=== PATIENT | male | born 1955 | race Caucasian/White ===

== ENCOUNTER 2021-06-26 16:01 | Emergency (ER) | payer BC, SELFPAY ==
[2021-06-26 17:45] VITALS: BP 175/72; PULSE 89; RESP 18; TEMP 36.3; O2SAT 96; BMI 27.1
[2021-06-26 17:59] LABS: MANUAL DIFF FLAG NO
[2021-06-26 18:00] LABS: Basophils Absolute Auto 0.1 X10*3/uL (0.0-0.2); Basophils Percent Auto 0.6 % (0-2); Eosinophils Absolute Auto 0.2 X10*3/uL (0.0-0.4); Eosinophils Percent Auto 2.2 % (0-4); Hematocrit 41.9 % (42.0-52.0); Hemoglobin 14.3 g/dl (14.0-18.0); Imm Gran Abs Auto 0.02 X10*3/uL (0.00-0.03); Imm Gran Pct Auto 0.2 % (0.0-0.4); Lymphocytes Percent Auto 24.2 % (20-40); Mean Corpuscular HGB Conc 34.1 g/dl (31.0-36.0); Mean Corpuscular Hemoglobin 32.1 pg (27.0-33.0); Mean Corpuscular Volume 94.2 fL (80.0-98.0); Mean Platelet Volume 8.8 fL (9.4-12.4); Monocytes Absolute Auto 0.9 X10*3/uL (0.1-1.2); Monocytes Percent Auto 10.3 % (2-11); Neutrophils Absolute Auto 5.2 x10*3/uL (2.0-8.3); Neutrophils Percent Auto 62.5 % (45-73); Platelet Count 234 X10*3/uL (160-400); Red Blood Count 4.45 X10*6/uL (4.60-5.80); Red Cell Distribution Width 12.9 % (11.0-16.0); White Blood Count 8.3 X10*3/uL (4.8-10.8)
[2021-06-26 18:28] LABS: Alanine Aminotransferase 25 U/L (0-40); Albumin Level 4.1 g/dL (3.5-5.0); Alkaline Phosphatase 60 U/L (39-117); Anion Gap 15 (12-20); Aspartate Amino Transferase 26 U/L (5-37); Bilirubin Total 0.5 mg/dL (0.0-1.0); Blood Urea Nitrogen 15 mg/dL (9-16); Calcium 9.3 mg/dL (8.4-10.2); Carbon Dioxide 27 mmol/L (22-29); Chloride 101 mmol/L (96-108); Creatinine Clr Calc Pharmacy 94.8; Estimated Glomerular Filt Rate > 60; Glucose Random 92 mg/dL (60-115); Potassium 4.5 mmol/L (3.3-5.1); Sodium 138 mmol/L (135-145); Total Protein 6.7 g/dL (6.5-8.0)
[2021-06-26 18:43] LABS: Appearance Urine CLOUDY; Color Urine YELLOW; Glucose Urine UA NEG (NEG); Leukocyte Esterase Urine 1+ (NEG); Nitrite Urine NEG (NEG); Specific Gravity - Urine 1.025 (1.005-1.025); UACC Culture Trigger YES; Urine Blood 3+ (NEG); Urine Ketones NEG (NEG); Urine Protein 3+ MG/DL (NEG-TRACE)
[2021-06-26 18:45] LABS: Bacteria Urine TRACE /LPF; Mucus Urine TRACE /LPF; Squamous Epithelial Cell Urine TRACE /LPF; WBC Clumps Urine NOTED
[2021-06-26 21:59] VITALS: BP 169/72; PULSE 88; RESP 16; TEMP 36.8; O2SAT 98
--- NOTE | 2021-06-26 23:53 | ED_ITS ---
HPI - Male Genitourinary General Chief complaint: Urogenital-Male Stated complaint: blood in urine/black stool Time Seen by Provider: 06/26/21 23:38 Source: patient Mode of arrival: ambulatory Limitations: no limitations History of Present Illness HPI Narrative: Patient comes to emergency room complaining diarrhea and hematuria. Patient states that the diarrhea started 1st, he took multiple doses of Pepto-Bismol, now he has dark stool. This morning, patient noted hematuria. Patient denies dysuria, no fever, no flank pain. Patient states he that he does not have any abdominal pain either, no nausea or vomiting. Related Data Previous Rx's Medication Instructions Recorded levofloxacin 500 mg tablet 500 mg PO DAILY #9 tab 06/26/21 Allergies Allergy/AdvReac Type Severity Reaction Status Date / Time Penicillins [PCN] Allergy Hives Verified 06/26/21 17:49 Review of Systems Review of Systems: Constitutional : No Weight loss, No Fever, No Chills, No Night Sweats, No Fatigue, No Malaise ENT/Mouth : No Hearing loss, No Ear Pain, No Nasal Congestion, No Sinus Pain, No Hoarseness, No sore throat, No Rhinorrhea, No Swallowing Difficulty Eyes: No Eye Pain, No Swelling, No Redness, No Foreign Body, No Discharge, No Vision Changes Cardiovascular : No Chest Pain, No SOB, No Dyspnea on Exertion, No Orthopnea, No Edema, No Palpitations Respiratory : No Cough, No Sputum, No Wheezing, No Smoke Exposure, No Dyspnea Gastrointestinal : No Nausea, No Vomiting, complaining of Diarrhea, No Constipation, No abdominal Pain, No Hematochezia, No Melena Genitourinary : no irregular bleeding, No Dysuria, No Urinary Frequency, com plaining of Hematuria, No Urinary Incontinence, No Urgency, No Flank Pain, No Urinary Flow Changes, No Hesitancy Musculoskeletal : No joint pain, No Myalgias, No Joint Swelling Skin : No Skin Lesions, No rash Neuro : No Weakness, No Numbness, No Paresthesias, No Loss of Consciousness, No Dizziness, No Headache Psych : No Anxiety/Panic, No Depression, No SI/HI/AH/VH, No Social Issues, Heme/Lymph: No Bruising, No Bleeding,No Lymphadenopathy Endocrine : No Polyuria, No Polydipsia, No Temperature Intolerance PMFSH Social History Social History Advance Directives: No Advance Directives Information Provided: No Physical Exam Vital Signs: Vital Signs: Last Vital Signs Temp 98.3 F 06/26/21 21:59 Pulse 88 06/26/21 21:59 Resp 16 06/26/21 21:59 BP 169/72 H 06/26/21 21:59 Pulse Ox 98 06/26/21 21:59 BMI result Body Mass Index 27.1 Const: Other: Appearance: Alert. Oriented X3. No acute distress. Well-appearing Eyes: Pupils equal, round and reactive to light. ENT: Pharynx normal. Neck: Normal inspection. Neck supple. No lymph nodes noted. No crepitus CVS: Normal heart rate and rhythm. Pulses normal. Normal S1 and S2 Respiratory: No respiratory distress. Breath sounds normal. No Wheezing. No rales Abdomen: Soft and nontender. No rigidity. No distention. Back: No CVA tenderness. Skin: Skin warm and dry. Normal skin color. Normal skin turgor. Extremities: No lower extremity edema. No Lacerations. No Rash Neuro: Oriented X 3. No motor deficit. No sensory deficit. Moving all extremities. No slurred speech. CN 2 through 12 grossly intact Psych: calm, cooperative, normal affect Course Course Course Narrative: Patient's white blood cell count within normal limits, patient has no fever, normal blood pressure, not tachycardic. Patient does have a UTI. Patient refused a rectal exam, it is likely that patient had black stool from Pepto- Bismol. He states he has had colonoscopies in the past and all have been normal . Patient was given the 1st dose of Levaquin in the emergency room p.o.. At this time, pyelonephritis and sepsis are not suspect MDM - Male Genitourinary Lab Data Result diagrams: 06/26/21 17:54 06/26/21 17:54 Labs: Lab Results 06/26/21 06/26/21 06/26/21 Range/Units 17:54 17:54 18:22 WBC 8.3 (4.8-10.8) X10*3/uL RBC 4.45 L (4.60-5.80) X10*6/uL Hgb 14.3 (14.0-18.0) g/dl Hct 41.9 L (42.0-52.0) % MCV 94.2 (80.0-98.0) fL MCH 32.1 (27.0-33.0) pg MCHC 34.1 (31.0-36.0) g/dl RDW 12.9 (11.0-16.0) % Plt Count 234 (160-400) X10*3/uL MPV 8.8 L (9.4-12.4) fL Immature Gran % (Auto) 0.2 (0.0-0.4) % Neut % (Auto) 62.5 (45-73) % Lymph % (Auto) 24.2 (20-40) % [place] % (Auto) 10.3 (2-11) % Eos % (Auto) 2.2 (0-4) % Baso % (Auto) 0.6 (0-2) % Lymph # (Auto) 2.0 (1.2-4.9) X10*3/uL [place] # (Auto) 0.9 (0.1-1.2) X10*3/uL Eos # (Auto) 0.2 (0.0-0.4) X10*3/uL Baso # (Auto) 0.1 (0.0-0.2) X10*3/uL Abs Immat Gran (auto) 0.02 (0.00-0.03) X10*3/uL Absolute Neuts (auto) 5.2 (2.0-8.3) x10*3/uL Absolute Nucleated RBC 0.000 (0.0-0.012) X10*3/uL Nucleated RBC % (auto) 0.0 (0.0-0.2) /100WBC Sodium 138 (135-145) mmol/L Potassium 4.5 (3.3-5.1) mmol/L Chloride 101 (96-108) mmol/L Carbon Dioxide 27 (22-29) mmol/L Anion Gap 15 (12-20) BUN 15 (9-16) mg/dL Creatinine 0.71 (0.5-1.4) mg/dL Estim Creat Clear Calc 94.8 Estimated GFR > 60 Random Glucose 92 (60-115) mg/dL Calcium 9.3 (8.4-10.2) mg/dL Total Bilirubin 0.5 (0.0-1.0) mg/dL AST 26 (5-37) U/L ALT 25 (0-40) U/L Alkaline Phosphatase 60 (39-117) U/L Total Protein 6.7 (6.5-8.0) g/dL Albumin 4.1 (3.5-5.0) g/dL Urine Color YELLOW Urine Appearance CLOUDY Urine pH 6.0 (5.0-8.0) Ur Specific [place] 1.025 (1.005-1.025) Urine Protein 3+ H (NEG-TRACE) MG/DL Urine Glucose (UA) NEG (NEG) MG/DL Urine Ketones NEG (NEG) MG/DL Urine Blood 3+ H (NEG) Urine Nitrite NEG (NEG) Ur Leukocyte Esterase 1+ H (NEG) Urine RBC 76-150 H (0) /HPF Urine WBC 15-29 H (0-4) /HPF Urine WBC Clumps NOTED Ur Squamous Epith Cells TRACE /LPF Urine Bacteria TRACE /LPF Urine Mucus TRACE /LPF Discharge Plan Discharge Clinical Impression: Urinary tract infection Patient Disposition: Home, Self-Care Instructions: Urinary Tract Infection in Men (ED) Additional Instructions: If you have any flank pain, fever, confusion, any new symptoms, please return to the emergency room. Please follow-up with your primary care physician tomorrow. If you have any worsening or new symptoms, please return to the emergency room or call 911 Prescriptions: New levofloxacin 500 mg tablet 500 mg PO DAILY Qty: 9 0RF Rx Instructions: Start 06/27/2021 Stand Alone Forms: Work/School Release
[2021-06-27] MEDS: levoFLOXacin 500 MG TABLET PO (00:03)
== END 2021-06-27 00:11 | disposition home or self-care (01) ==
PROVIDERS: Emergency Provider Emergency Medicine; PCP Internal Medicine
DX: N39.0 Urinary tract infection, site not specified (principal); R31.9 Hematuria, unspecified; Z79.899 Other long term (current) drug therapy
CPT/HCPCS: 36415; 80053; 81001; 85025; 87086; 87088; 87186; 99283

== ENCOUNTER 2023-01-16 21:35 | Emergency (ER) | payer BC, SELFPAY ==
--- NOTE | ~2023-01-16 | CT_ITS ---
EXAMINATION: CT ABDOMEN AND PELVIS WITHOUT CONTRAST CLINICAL INFORMATION: Hematuria COMPARISON: None available. TECHNIQUE: Multidetector volumetric imaging was performed from the superior aspect of the liver through the pubic symphysis. Sagittal and coronal reformatted images were obtained on the technologist's workstation. This CT examination was performed using dose optimization techniques as appropriate, variously including the following: *Automated exposure control *Adjustment of mA and/or kV according to patient size (this includes techniques or standardized protocols for targeted exams where dose is matched to indication/reason for exam; i.e. extremities or head) *Use of iterative reconstruction technique DLP: 543 mGy-cm FINDINGS: LUNG BASES: The visualized lung bases are unremarkable. LIVER, GALLBLADDER, AND BILIARY TREE: Scattered numerous hypodensities of the liver which are sharply marginated , Likely multiple hepatic cysts. Largest in the central liver measures 2 cm. No intrahepatic bile duct dilatation. The gallbladder is unremarkable with no evidence of radiopaque gallstones, gallbladder wall thickening, or obvious pericholecystic inflammatory changes. PANCREAS: Unremarkable. SPLEEN: Unremarkable. ADRENAL GLANDS: Unremarkable. KIDNEYS AND URETERS: The kidneys are normal in size, shape, and attenuation. No hydronephrosis, hydroureter, or calculi seen. No perinephric stranding. BLADDER: Unremarkable. GASTROINTESTINAL TRACT: There are scattered diverticula of the sigmoid colon. There is no diverticulitis. There is no bowel wall thickening /edema. There is no bowel obstruction. There is a moderate volume of stool in the colon. The appendix is normal . The small bowel loops are unremarkable. The stomach is normal. There is no hiatal hernia. ABDOMINAL WALL: No significant hernia is appreciated. LYMPH NODES: Normal. VASCULAR: Vascular calcifications in the abdomen and pelvis. No aneurysm. PELVIC VISCERA: Unremarkable. OSSEOUS STRUCTURES: Status post left hip replacement. Degenerative spondylosis spine. CT/CT abdomen pelvis wo IV con IMPRESSION: 1. No acute abnormality CT scan abdomen pelvis. Normal kidneys, ureter and bladder. Fleischner guidelines were followed.
[2023-01-16 21:47] VITALS: BP 143/59; PULSE 93; RESP 18; TEMP 36.7; O2SAT 96; BMI 28.5
[2023-01-16 22:23] VITALS: BP 152/60; PULSE 90; TEMP 36.8; O2SAT 96
[2023-01-16 22:40] LABS: MANUAL DIFF FLAG NO
[2023-01-16 22:46] LABS: Basophils Absolute Auto 0.1 X10*3/uL (0.0-0.2); Basophils Percent Auto 0.4 % (0-2); Eosinophils Absolute Auto 0.1 X10*3/uL (0.0-0.4); Eosinophils Percent Auto 0.9 % (0-4); Hematocrit 41.5 % (42.0-52.0); Hemoglobin 14.2 g/dl (14.0-18.0); Imm Gran Abs Auto 0.06 X10*3/uL (0.00-0.03); Imm Gran Pct Auto 0.4 % (0.0-0.4); Lymphocytes Absolute Auto 1.9 X10*3/uL (1.2-4.9); Mean Corpuscular HGB Conc 34.2 g/dl (31.0-36.0); Mean Corpuscular Hemoglobin 32.4 pg (27.0-33.0); Mean Corpuscular Volume 94.7 fL (80.0-98.0); Mean Platelet Volume 8.9 fL (9.4-12.4); Monocytes Absolute Auto 1.1 X10*3/uL (0.1-1.2); Monocytes Percent Auto 7.4 % (2-11); Neutrophils Absolute Auto 11.6 x10*3/uL (2.0-8.3); Neutrophils Percent Auto 77.9 % (45-73); Platelet Count 247 X10*3/uL (160-400); Red Blood Count 4.38 X10*6/uL (4.60-5.80); White Blood Count 14.9 X10*3/uL (4.8-10.8)
[2023-01-16 22:55] LABS: Alanine Aminotransferase 14 U/L (0-40); Albumin Level 3.9 g/dL (3.5-5.0); Alkaline Phosphatase 63 U/L (39-117); Anion Gap 13 (12-20); Aspartate Amino Transferase 18 U/L (5-37); Bilirubin Total 0.5 mg/dL (0.0-1.0); Blood Urea Nitrogen 16 mg/dL (9-16); Calcium 9.1 mg/dL (8.4-10.2); Carbon Dioxide 25 mmol/L (22-29); Chloride 102 mmol/L (96-108); Creatinine Clr Calc Pharmacy 95.6; Estimated Glomerular Filt Rate > 60; Glucose Random 98 mg/dL (60-115); Sodium 136 mmol/L (135-145); Total Protein 6.8 g/dL (6.5-8.0)
[2023-01-16 23:02] LABS: Appearance Urine Turbid; Color Urine RED; Glucose Urine UA 100 mg/dL (Negative); Leukocyte Esterase Urine Moderate (2+) (Negative); Nitrite Urine Positive (Negative); PH 6.5 (5.0-9.0); UMIC TRIGGER UACC YES; Urine Blood Large (3+) (Negative); Urine Ketones 15 mg/dL (Negative); Urine Protein 300 (3+) mg/dL (Neg-Trace)
[2023-01-16 23:03] LABS: Bacteria Urine Trace (None Seen); Hyaline Casts Urine 0-2 /LPF (0-2); RBC Urine >20 /HPF (0-2); Squamous Epithelial Cell Urine 0-2 /HPF (0-2); UACC Culture Trigger YES; WBC Urine >50 /HPF (0-5)
--- NOTE | 2023-01-16 23:14 | ED_ITS ---
HPI - Male Genitourinary General Chief complaint: Urogenital-Male Stated complaint: blood in urine Time Seen by Provider: 01/16/23 22:50 Source: patient and family ( son) Mode of arrival: ambulatory Limitations: no limitations History of Present Illness HPI Narrative: 67-year-old male came in for evaluation of dysuria, frequency urination, and gross hematuria started for 1 day, patient is not on AC. Declined any abdominal pain or back pain. Patient had similar presentation in the past and patient's symptoms was due to UTI improved with antibiotic. Patient with cross hematuria bladder irrigation with Tucker catheter insertion was discussed with the patient who adamantly declined the Tucker catheter patient understand the benefit of inserting catheterization and do continuous irrigation to stop the bleeding and still decline the catheter and just wanted to be treated with antibiotic life last time. Related Data Home Medications Medication Instructions Recorded Confirmed aspirin 81 mg tablet,delayed 81 mg PO DAILY 02/26/22 release (Adult Aspirin Regimen) atorvastatin 40 mg tablet 40 mg PO DAILY 02/26/22 vyvsvzmaltzd-owk-lypwr acid-vit 1 tab PO DAILY 02/26/22 K-lycop 400 mcg-20 mcg-370 mcg tablet (Men's 50 Plus Multivitamin) Previous Rx's Medication Instructions Recorded levofloxacin 500 mg tablet 500 mg PO DAILY 10 days #10 tabs 02/26/22 lidocaine 4 % topical patch 1 patch topical DAILY PRN pain #15 02/26/22 (AsperFlex (lidocaine)) ea levofloxacin 750 mg tablet 750 mg PO DAILY #7 tabs 01/16/23 Allergies Allergy/AdvReac Type Severity Reaction Status Date / Time Penicillins [PCN] Allergy Hives Verified 01/16/23 21:50 Review of Systems 2 Review of Systems: all other systems are reviewed and are negative Constitutional: Reports as per HPI and Reports no additional constitutional complaints Eyes: Reports as per HPI and Reports no additional eye complaints Reports system reviewed and no additional complaints, except as documented Cardiovascular: Reports as per HPI and Reports no additional cardiovascular complaints Respiratory: Reports as per HPI and Reports no additional respiratory complaints Gastrointestinal: Reports as per HPI and Reports no additional gastrointestinal complaints Genitourinary: Reports no additional female genitourinary complaints Musculoskeletal: Reports no additional musculoskeletal complaints Skin/Breast: Reports system reviewed and no additional complaints, except as docu Psychiatric: Reports no additional psychiatric complaints Endocrine: Reports no additional endocrine complaints Hematologic/Lymphatic: Reports no additional hematologic/lymphatic complaints Allergic/Immunologic: Reports no additional allergic/immunologic complaints Reports system reviewed and no additional complaints, except as documented and Reports Abnormal speech present [facility] Social History Social History Patient Tobacco Use Status: Never used Tobacco Advance Directives: No Advance Directives Information Provided: No Physical Exam 2 Vital Signs: Vital Signs: Last Vital Signs Temp 98.4 F 01/17/23 00:29 Pulse 78 01/17/23 00:29 Resp 16 01/17/23 00:29 BP 143/65 H 01/17/23 00:29 Pulse Ox 96 01/17/23 00:29 O2 Del Method Room Air 01/17/23 00:29 BMI result Body Mass Index 28.5 Vital signs have been reviewed and appear to be correct. Blood pressure elevated. Heart rate normal. Respiratory rate normal. Temperature normal. Oxygen saturation normal. Appearance: Alert. Oriented X3. No acute distress. Head: Normal external exam. Normocephalic. Atraumatic. No Mcconnell signs noted. No raccoon eyes noted Eyes: PERRLA. EOMI. Conjunctiva and sclera normal. Eyelids normal. ENT: TM's Normal. Pharynx normal. Uvula midline. Moist mucous membranes. No trismus noted. No drooling noted. No muffled voice noted. Neck: Normal inspection. Neck supple. FROM. No adenopathy. Thyroid Normal. No meningeal signs. No neck mass noted. CVS: Normal heart rate and rhythm. Heart sound normal. No murmurs noted. Pulses normal throughout. Respiratory: No respiratory distress. Painless inspiration. Breath sounds normal. No wheezes/rales/rhonchi noted. Chest nontender. No accessory muscle usage noted or decreased air movement noted. Abdomen: Soft and nontender. Bowel sounds normal in all 4 quadrants. No distention noted. No organomegaly noted. No visible injury noted. Back: No CVA tenderness. Full range of motion noted. Skin: Skin warm and dry. Normal skin color. Normal skin turgor. No rashes/lesions/lacerations noted. Extremities: No lower extremity edema. Extremities exhibit normal range of motion. Extremities nontender. Neuro: Oriented X 3. Cranial nerve exam: II-XII are grossly intact No motor deficit. No sensory deficit. Reflexes normal. Course Reevaluation(s) Reevaluation #1: UTI/gross hematuria had previous episode in the past that was resolved with antibiotic for UTI. CT abdomen pelvis showing no intra-abdominal abnormalities. Will start the patient on Levaquin and follow up with urologist. Time: 01:19 Medications Administered Discontinued Medications Generic Name Dose Route Start Last Admin Trade Name Freq PRN Reason Stop Dose Admin Sodium Chloride 1,000 mls @ 999 mls/hr 01/16/23 23:08 01/16/23 23:52 Ns IV 01/17/23 00:08 999 mls/hr .[id number] ONE Administration Levofloxacin 750 mg in 150 mls @ 100 mls/hr 01/16/23 23:13 01/16/23 23:53 Levaquin IV 01/17/23 00:42 100 mls/hr ONCE ONE Administration Medical Decision Making Differential Diagnosis Differential Diagnoses: The differential diagnosis associated with the presentation includes ( Severe anemia, electrolyte abnormality, kidney stone, intra-abdominal mass.) Admission/Observation Consideration of admission/observation: Escalation of care including admission/observation considered Lab Data MDM Lab Attestation statement: I reviewed the patient's lab results. 01/16/23 22:30 01/16/23 22:30 Labs: Lab Results 01/16/23 01/16/23 01/16/23 Range/Units 22:30 22:31 23:52 WBC 14.9 H (4.8-10.8) X10*3/uL RBC 4.38 L (4.60-5.80) X10*6/uL Hgb 14.2 (14.0-18.0) g/dl Hct 41.5 L (42.0-52.0) % MCV 94.7 (80.0-98.0) fL MCH 32.4 (27.0-33.0) pg MCHC 34.2 (31.0-36.0) g/dl RDW 13.0 (11.0-16.0) % Plt Count 247 (160-400) X10*3/uL MPV 8.9 L (9.4-12.4) fL Immature Gran % (Auto) 0.4 (0.0-0.4) % Neut % (Auto) 77.9 H (45-73) % Lymph % (Auto) 13.0 L (20-40) % [place] % (Auto) 7.4 (2-11) % Eos % (Auto) 0.9 (0-4) % Baso % (Auto) 0.4 (0-2) % Lymph # (Auto) 1.9 (1.2-4.9) X10*3/uL [place] # (Auto) 1.1 (0.1-1.2) X10*3/uL Eos # (Auto) 0.1 (0.0-0.4) X10*3/uL Baso # (Auto) 0.1 (0.0-0.2) X10*3/uL Abs Immat Gran (auto) 0.06 H (0.00-0.03) X10*3/uL Absolute Neuts (auto) 11.6 H (2.0-8.3) x10*3/uL Absolute Nucleated RBC 0.000 (0.0-0.012) X10*3/uL Nucleated RBC % (auto) 0.0 (0.0-0.2) /100WBC Sodium 136 (135-145) mmol/L Potassium 4.0 (3.3-5.1) mmol/L Chloride 102 (96-108) mmol/L Carbon Dioxide 25 (22-29) mmol/L Anion Gap 13 (12-20) BUN 16 (9-16) mg/dL Creatinine 0.74 (0.5-1.4) mg/dL Estim Creat Clear Calc 95.6 Estimated GFR > 60 Random Glucose 98 (60-115) mg/dL Lactic Acid 0.6 (0.5-2.0) mmol/L Calcium 9.1 (8.4-10.2) mg/dL Total Bilirubin 0.5 (0.0-1.0) mg/dL AST 18 (5-37) U/L ALT 14 (0-40) U/L Alkaline Phosphatase 63 (39-117) U/L Total Protein 6.8 (6.5-8.0) g/dL Albumin 3.9 (3.5-5.0) g/dL Urine Color RED Urine Appearance Turbid Urine pH 6.5 (5.0-9.0) Ur Specific [place] 1.020 (1.005-1.025) Urine Protein 300 (3+) H (Neg-Trace) mg/dL Urine Glucose (UA) 100 H (Negative) mg/dL Urine Ketones 15 (Negative) mg/dL Urine Blood Large (3+) H (Negative) Urine Nitrite Positive H (Negative) Ur Leukocyte Esterase Moderate (2+) H (Negative) Urine RBC >20 H (0-2) /HPF Urine WBC >50 H (0-5) /HPF Ur Squamous Epith Cells 0-2 (0-2) /HPF Urine Bacteria Trace (None Seen) Hyaline Casts 0-2 (0-2) /LPF Independent Interpretation I performed an independent interpretation of an: CT Scan (1. No acute abnormality CT scan abdomen pelvis. Normal kidneys, ureter and bladder. ) Radiology Impression Discussion of test interpretation with radiology: I have reviewed the radiologist's reading. Discharge Plan Discharge Clinical Impression: Hematuria Urinary tract infection Qualifiers: Urinary tract infection type: acute cystitis Hematuria presence: with hematuria Qualified Code(s): N30.01 - Acute cystitis with hematuria Patient Disposition: Home, Self-Care Instructions: Urinary Tract Infection in Men (ED) Prescriptions: New levofloxacin 750 mg tablet 750 mg PO DAILY Qty: 7 0RF No Action atorvastatin 40 mg tablet 40 mg PO DAILY aspirin [Adult Aspirin Regimen] 81 mg tablet,delayed release (DR/EC) 81 mg PO DAILY Men's 50 Plus Multivitamin 400-20-370 mcg tablet 1 tab PO DAILY levofloxacin 500 mg tablet 500 mg PO DAILY 10 Days Qty: 10 0RF lidocaine [AsperFlex (lidocaine)] 4 % adhesive patch,medicated 1 patch topical DAILY PRN (Reason: pain) Qty: 15 0RF Referrals: Duarte Singleton MD [Physician] -
[2023-01-16] MEDS: 0.9 % Sodium Chloride 1,000 ML 999 ML IV (23:52)
[2023-01-16] MEDS: levoFLOXacin/D5W 750 MG/150 ML PIGGYBACK 100 MG IV (23:53)
--- NOTE | 2023-01-17 00:01 | PC.NURSE ---
verbal order from Dr. Childress to obtain blood cultures/lactic prior to ivf/abx. ivf and abx infusing at this time. education provided to pt and son at bedside of plan of care; both denied questions/concerns at this time. pt to ct scan.
[2023-01-17 00:14] LABS: Lactic Acid 0.6 mmol/L (0.5-2.0)
[2023-01-17 00:29] VITALS: BP 143/65; PULSE 78; RESP 16; TEMP 36.9; O2SAT 96
[2023-01-17 01:36] VITALS: BP 136/81; PULSE 84; RESP 16; O2SAT 95
== END 2023-01-17 01:37 | disposition home or self-care (01) ==
PROVIDERS: Emergency Provider Emergency Medicine; PCP Internal Medicine
DX: N30.01 Acute cystitis with hematuria (principal); R30.0 Dysuria; R35.0 Frequency of micturition
CPT/HCPCS: 36415; 74176; 80053; 81001; 83605; 85025; 87040; 87086; 96365; 96366; 99285; J1956

== ENCOUNTER 2023-02-22 06:55 | Emergency (ER) | payer BC, SELFPAY ==
[2023-02-22 07:14] VITALS: BP 155/70; PULSE 84; RESP 17; TEMP 36.8; O2SAT 97; BMI 25.9
[2023-02-22 08:17] LABS: MANUAL DIFF FLAG NO
[2023-02-22 08:20] LABS: Basophils Absolute Auto 0.1 X10*3/uL (0.0-0.2); Basophils Percent Auto 0.6 % (0-2); Eosinophils Absolute Auto 0.2 X10*3/uL (0.0-0.4); Eosinophils Percent Auto 1.8 % (0-4); Hematocrit 46.2 % (42.0-52.0); Hemoglobin 15.5 g/dl (14.0-18.0); Imm Gran Abs Auto 0.06 X10*3/uL (0.00-0.03); Imm Gran Pct Auto 0.5 % (0.0-0.4); Lymphocytes Absolute Auto 1.6 X10*3/uL (1.2-4.9); Lymphocytes Percent Auto 14.2 % (20-40); Mean Corpuscular HGB Conc 33.5 g/dl (31.0-36.0); Mean Corpuscular Hemoglobin 32.4 pg (27.0-33.0); Mean Corpuscular Volume 96.7 fL (80.0-98.0); Monocytes Absolute Auto 0.8 X10*3/uL (0.1-1.2); Monocytes Percent Auto 6.9 % (2-11); Neutrophils Absolute Auto 8.4 x10*3/uL (2.0-8.3); Platelet Count 218 X10*3/uL (160-400); Red Blood Count 4.78 X10*6/uL (4.60-5.80); Red Cell Distribution Width 13.7 % (11.0-16.0); White Blood Count 11.1 X10*3/uL (4.8-10.8)
[2023-02-22 08:21] LABS: Appearance Urine Turbid; Color Urine Red; Glucose Urine UA Negative (Negative); Leukocyte Esterase Urine Large (3+) (Negative); Nitrite Urine Positive (Negative); UMIC TRIGGER UACC YES; Urine Blood Moderate (2+) (Negative); Urine Ketones Negative (Negative); Urine Protein 100 (2+) mg/dL (Neg-Trace)
--- NOTE | 2023-02-22 08:21 | ED_ITS ---
HPI - Male Genitourinary General Chief complaint: Urogenital-Male Stated complaint: Blood in urine Time Seen by Provider: 02/22/23 08:20 Source: patient Mode of arrival: ambulatory Limitations: no limitations History of Present Illness HPI Narrative: 67-year-old male history of COPD and UTI who presents emergency department for evaluation of hematuria. Patient states this morning he noted a dark red blood when he urinated, he also noted small blood clots. He states that he has been urinating frequently but in small amounts. He also has a burning sensation when he urinates. Had a similar presentation 1 month prior he states that he was diagnosed with urinary tract infection. I did review his emergency department record from 01/16/2023. CT scan of the abdomen pelvis without contrast which revealed no acute abnormality. Was diagnosed with acute cystitis in treated with Levaquin 750 mg once a day for 7 days. Urine from that time grew less than 10,000 colony-forming units without a identify organism. Patient did have a positive urine culture from 06/26/2021 Proteus mirabilis and Klebsiella oxytocin. Patient states that he does get up once or twice a night to urinate, he states that he has a strong urinary stream. Related Data Home Medications Medication Instructions Recorded Confirmed aspirin 81 mg tablet,delayed 81 mg PO DAILY 02/26/22 release (Adult Aspirin Regimen) atorvastatin 40 mg tablet 40 mg PO DAILY 02/26/22 wsxnfxydysga-asz-veiml acid-vit 1 tab PO DAILY 02/26/22 K-lycop 400 mcg-20 mcg-370 mcg tablet (Men's 50 Plus Multivitamin) Previous Rx's Medication Instructions Recorded levofloxacin 500 mg tablet 500 mg PO DAILY 10 days #10 tabs 02/26/22 lidocaine 4 % topical patch 1 patch topical DAILY PRN pain #15 02/26/22 (AsperFlex (lidocaine)) ea levofloxacin 750 mg tablet 750 mg PO DAILY #7 tabs 01/16/23 ciprofloxacin HCl 500 mg tablet 500 mg PO Q12H 5 days #10 tabs 02/22/23 (Cipro) Allergies Allergy/AdvReac Type Severity Reaction Status Date / Time Penicillins [PCN] Allergy Hives Verified 01/16/23 21:50 Review of Systems 2 Review of Systems: Yes all other systems are reviewed and are negative PMFSH Past Medical History PMFSH Narrative: Patient smokes 1.5 packs of cigarettes per day times 45 years, denies alcohol and drug use. Social History Social History Patient Tobacco Use Status: Never used Tobacco Advance Directives: No Advance Directives Information Provided: Yes Physical Exam 2 Vital Signs: Vital Signs: Last Vital Signs Temp 98.3 F 02/22/23 07:14 Pulse 84 02/22/23 07:14 Resp 17 02/22/23 07:14 BP 155/70 H 02/22/23 07:14 Pulse Ox 97 02/22/23 07:14 O2 Del Method Room Air 02/22/23 07:14 BMI result Body Mass Index 25.9 Signs were normal except for an elevated blood pressure of 155/70 Exam General: Awake, alert in no distress Head: Normocephalic, atraumatic EENT: PERRL, Lids normal, sclera normal, conjunctiva normal, nose normal , ears normal, throat without erythema or exudates Neck: Supple, no adenopathy, no trachea midline or C-spine tenderness Lung: breath sounds symmetric, no wheezing, rales or rhonchi Chest: symmetric movement, nontender Heart: regular rate and rhythm, normal S1, S2 no murmurs or rubs Abdomen: soft, non-tender, nondistended, normal bowel sounds Back: no vertebral tenderness, no CVAT Extremities: no deformities, moves all extremities symmetrically Skin: no rashes, no lesion, normal color and warmth Neuro: Awake, alert, oriented, normal speech, moves all extremities symmetrically Psych: Pleasant, cooperative Medical Decision Making Medical Decision Making MDM Narrative: 67-year-old male with history of COPD, urinary tract infection, hematuria in the past who presents emergency department for evaluation of hematuria, frequency and dysuria. It is similar presentation 01/16/[address] scan of the abdomen pelvis without IV contrast and positive urinalysis/microscopic but negative culture Vital signs did reveal an elevated blood pressure otherwise were unremarkable. Physical examination was normal. Patient had no suprapubic or CVA tenderness. Following evaluation was ordered: CBC, BMP, urinalysis 08:42 Patient WBC was elevated 11,100 otherwise blood work was unremarkable. Urinalysis was consistent with gross hematuria, positive protein, positive leukocyte esterase and nitrates. Microscopic revealed greater than 20 RBCs greater than 50 WBCs but no bacteria. At this time, concerned that the patient may have a urinary tract infection despite no bacteria microscopic evaluation. Given his positive urine culture in the past for Proteus mirabilis and Klebsiella oxytoca which were both sensitive to fluoroquinolones, patient will be started on ciprofloxacin 500 mg twice a day for 5 days. Patient will be referred to our Urology for re-evaluation Patient's initial bladder scan revealed 152 mL of urine in the bladder. Patient then voided and repeat bladder scan revealed 67 mL suggesting that he is not retaining urine. Differential Diagnosis Differential Diagnoses: The differential diagnosis associated with the presentation includes Differential diagnosis includes but is not limited to urinary tract infection, prostatitis, bladder CA, renal cancer Admission/Observation Consideration of admission/observation: Escalation of care including admission/observation considered Lab Data MDM Lab Attestation statement: I reviewed the patient's lab results. My interpretation patient's laboratory evaluation is as follows: WBC elevated 11,100, H&H was normal 15.5 and 46.2. BMP was normal with a BUN of 14 and a creatinine of 0.74 pain. Urinalysis noted red color, positive protein, 2+ blood, positive nitrate, positive leukocyte esterase. Microscopic revealed greater than 20 RBCs , no bacteria. 02/22/23 08:11 02/22/23 08:11 Labs: Lab Results 02/22/23 Range/Units 08:11 WBC 11.1 H (4.8-10.8) X10*3/uL RBC 4.78 (4.60-5.80) X10*6/uL Hgb 15.5 (14.0-18.0) g/dl Hct 46.2 (42.0-52.0) % MCV 96.7 (80.0-98.0) fL MCH 32.4 (27.0-33.0) pg MCHC 33.5 (31.0-36.0) g/dl RDW 13.7 (11.0-16.0) % Plt Count 218 (160-400) X10*3/uL MPV 9.0 L (9.4-12.4) fL Immature Gran % (Auto) 0.5 H (0.0-0.4) % Neut % (Auto) 76.0 H (45-73) % Lymph % (Auto) 14.2 L (20-40) % [place] % (Auto) 6.9 (2-11) % Eos % (Auto) 1.8 (0-4) % Baso % (Auto) 0.6 (0-2) % Lymph # (Auto) 1.6 (1.2-4.9) X10*3/uL [place] # (Auto) 0.8 (0.1-1.2) X10*3/uL Eos # (Auto) 0.2 (0.0-0.4) X10*3/uL Baso # (Auto) 0.1 (0.0-0.2) X10*3/uL Abs Immat Gran (auto) 0.06 H (0.00-0.03) X10*3/uL Absolute Neuts (auto) 8.4 H (2.0-8.3) x10*3/uL Absolute Nucleated RBC 0.000 (0.0-0.012) X10*3/uL Nucleated RBC % (auto) 0.0 (0.0-0.2) /100WBC Discharge Plan Discharge Clinical Impression: Dysuria Hematuria Qualifiers: Hematuria type: gross Qualified Code(s): R31.0 - Gross hematuria Patient Disposition: Home, Self-Care Instructions: Hematuria (ED) Additional Instructions: Your blood work [place] [address] otherwise you were not anemic and your kidney function was normal pain. Your urinalysis positive for blood and urine microscopic did reveal red blood cells and white blood cells but no bacteria was seen. Your initial bladder scan was 152 mL and your bladder scan after urinated was 67 L which is reassuring suggesting that your not retaining urine at this time. I am going to treat you for a possible urinary tract infection with ciprofloxacin 500 mg, 1 pill every 12 hours for 5 days. It is important that you follow-up with a urologist to further evaluate the blood in your urine. The blood is most likely caused by urine infection or inflammation of your prostate however kidney cancer and bladder cancer needs to be considered and that is why you need to see a urologist. Ask your PCP to refer you to a urologist or call our urologist on-call. Follow-up with your doctor in 2 days. Please return to the emergency department if your symptoms get worse or if you develop any symptoms that are concerning to you. Please see the work note Prescriptions: New ciprofloxacin HCl [Cipro] 500 mg tablet 500 mg PO Q12H 5 Days Qty: 10 0RF No Action levofloxacin 750 mg tablet 750 mg PO DAILY Qty: 7 0RF atorvastatin 40 mg tablet 40 mg PO DAILY aspirin [Adult Aspirin Regimen] 81 mg tablet,delayed release (DR/EC) 81 mg PO DAILY Men's 50 Plus Multivitamin 400-20-370 mcg tablet 1 tab PO DAILY levofloxacin 500 mg tablet 500 mg PO DAILY 10 Days Qty: 10 0RF lidocaine [AsperFlex (lidocaine)] 4 % adhesive patch,medicated 1 patch topical DAILY PRN (Reason: pain) Qty: 15 0RF Referrals: Dennis Reddy MD [Physician] - 2 weeks (Recurred hematuria and dysuria) Stand Alone Forms: Work/School Release
[2023-02-22 08:30] LABS: Bacteria Urine None Seen (None Seen); Hyaline Casts Urine 0-2 /LPF (0-2); RBC Urine >20 /HPF (0-2); Squamous Epithelial Cell Urine 0-2 /HPF (0-2); UACC Culture Trigger YES; WBC Urine >50 /HPF (0-5)
[2023-02-22 08:31] LABS: Anion Gap 11 (12-20); Blood Urea Nitrogen 14 mg/dL (9-16); Calcium 9.3 mg/dL (8.4-10.2); Carbon Dioxide 29 mmol/L (22-29); Chloride 105 mmol/L (96-108); Creatinine Clr Calc Pharmacy 86.5; Estimated Glomerular Filt Rate > 60; Glucose Random 99 mg/dL (60-115); Sodium 141 mmol/L (135-145)
[2023-02-22 09:04] VITALS: BP 143/81; PULSE 99; RESP 18; O2SAT 96
== END 2023-02-22 09:14 | disposition home or self-care (01) ==
PROVIDERS: Emergency Provider Emergency Medicine Emergency Medical Services; PCP Internal Medicine
DX: R31.0 Gross hematuria (principal); R30.0 Dysuria; R35.0 Frequency of micturition; Z79.899 Other long term (current) drug therapy; F17.210 Nicotine dependence, cigarettes, uncomplicated; Z71.6 Tobacco abuse counseling
CPT/HCPCS: 36415; 51798; 80048; 81001; 85025; 87086; 99283; 99284

== ENCOUNTER 2024-03-15 06:38 | Emergency (ER) | payer BC, SELFPAY ==
[2024-03-15] VITALS (7 sets, daily range): BP systolic 127–152; BP diastolic 56–64; PULSE 76–93; RESP 14–18; TEMP 36.7–36.8; O2SAT 94–98; BMI 24.7
--- NOTE | ~2024-03-15 | CT_ITS ---
EXAMINATION: CT ABDOMEN AND PELVIS WITHOUT CONTRAST CLINICAL INFORMATION: Left-sided flank pain COMPARISON: CT abdomen and pelvis 01/16/2023 TECHNIQUE: Multidetector volumetric imaging was performed from the superior aspect of the liver through the pubic symphysis. Sagittal and coronal reformatted images were obtained on the technologist's workstation. This CT examination was performed using dose optimization techniques as appropriate, variously including the following: *Automated exposure control *Adjustment of mA and/or kV according to patient size (this includes techniques or standardized protocols for targeted exams where dose is matched to indication/reason for exam; i.e. extremities or head) *Use of iterative reconstruction technique DLP: 454 mGy-cm FINDINGS: LUNG BASES: The visualized lung bases are unremarkable. LIVER, GALLBLADDER, AND BILIARY TREE: The liver is normal in size, shape, and attenuation. There are multiple low-density lesions in the liver which are stable. No intrahepatic ductal dilatation seen. The gallbladder is unremarkable. PANCREAS: Unremarkable. SPLEEN: Unremarkable. ADRENAL GLANDS: Unremarkable. KIDNEYS AND URETERS: The kidneys are normal in size, shape, and attenuation. No hydronephrosis, hydroureter, or calculi seen. No perinephric stranding. BLADDER: Unremarkable. GASTROINTESTINAL TRACT: There is scattered stool, diverticuli and gas throughout the colon without distention. There is mild mural thickening involving the sigmoid colon with adjacent diverticuli but no pericolic fat stranding seen. The small bowel loops are normal caliber. Appendix is normal caliber. No free air or free fluid seen. ABDOMINAL WALL: No significant hernia is appreciated. LYMPH NODES: Normal. VASCULAR: There is significant atherosclerotic calcification of abdominal aorta and common iliac arteries without aneurysmal dilatation PELVIC VISCERA: Unremarkable. 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 The vertebral heights, alignment and disc heights are normal. There is mild ventral spondylosis. No visible acute fracture or dislocation. CT/CT abdomen pelvis wo IV con IMPRESSION: Diffuse mural thickening involving the sigmoid colon with enlargement. Question underlying mass versus stool. The findings were visualized on previous exam and appear 01/17/2023. Recommend sigmoidoscopy. Scattered colonic diverticulosis without diverticulitis. Normal appendix. Mild constipation. Multiple low-density liver lesions are stable. Fleischner guidelines were followed. Electronically signed by: Chris Sorenson MD 03/15/2024 08:47 AM EST [facility]
--- NOTE | 2024-03-15 07:35 | ED_ITS ---
HPI - Male Genitourinary General Chief complaint: Urogenital-Male Stated complaint: blood in urine started 03/14/24 at noon Time Seen by Provider: 03/15/24 07:33 Source: patient and RN notes reviewed Mode of arrival: ambulatory Limitations: no limitations History of Present Illness ED Provider: Elvia Sumner PA-C HPI Narrative: This is a 69-year old male who presents emergency department with complaints of hematuria since yesterday. Patient reports that since noon he has developed some hematuria, urinary frequency and urgency. He does report dysuria towards the end of his stream. He states that he has a history of urinary tract infections and his symptoms feel similar, states that he previously saw Urology, who started him on tamsulosin. He is not taking this anymore. Denies any fevers, chills, chest pain, shortness of breath, vomiting, nausea or diarrhea. No constipation. He does admit to having decreased appetite and some lightheadedness. Denies taking any medications prior to his arrival. He is not sexually active. Denies concerns for sexually transmitted infection. No other complaints or concerns at this time. MD Complaint: dysuria Onset (ago): day(s) Severity: moderate Relieving factors: none Exacerbating factors: urination Associated symptoms: Reports denies other symptoms Related Data Sexually active: No Home Medications ?Medication ?Instructions ?Recorded ?Confirmed aspirin 81 mg tablet,delayed 81 mg PO DAILY 02/26/22 release (Adult Aspirin Regimen) atorvastatin 40 mg tablet 40 mg PO DAILY 02/26/22 rrohoswypfkh-qpp-jcocb acid-vit 1 tab PO DAILY 02/26/22 K-lycop 400 mcg-20 mcg-370 mcg tablet (Men's 50 Plus Multivitamin) Previous Rx's ?Medication ?Instructions ?Recorded levofloxacin 500 mg tablet 500 mg PO DAILY 10 days #10 tabs 02/26/22 lidocaine 4 % topical patch 1 patch topical DAILY PRN pain #15 02/26/22 (AsperFlex (lidocaine)) ea levofloxacin 750 mg tablet 750 mg PO DAILY #7 tabs 01/16/23 ciprofloxacin HCl 500 mg tablet 500 mg PO Q12H 5 days #10 tabs 02/22/23 (Cipro) sulfamethoxazole 800 1 tab PO BID 7 days #14 tabs 03/15/24 mg-trimethoprim 160 mg tablet (Bactrim DS) Allergies Allergy/AdvReac Type Severity Reaction Status Date / Time Penicillins [PCN] Allergy Hives Verified 03/15/24 06:47 Review of Systems 2 Review of Systems: Yes all other systems are reviewed and are negative Constitutional: Constitutional: Reports as per [facility] Past Medical History Attestation statement: The following information was validated with the patient. Social History Social History Alcohol intake: never Patient Tobacco Use Status: Never used Tobacco Smoked in Last 30 Days: Yes Use of substances other than those prescribed or required for medical reasons: No Advance Directives: No Advance Directives Information Provided: Yes Physical Exam 2 Vital Signs: Vital Signs: Last Vital Signs Temp 98.1 F 03/15/24 11:53 Pulse 88 03/15/24 11:53 Resp 14 03/15/24 11:53 BP 127/56 L 03/15/24 11:53 Pulse Ox 94 03/15/24 11:53 O2 Del Method Room Air 03/15/24 11:53 BMI result Body Mass Index 24.7 Const: General: cooperative, comfortable and no acute distress O rientation/consciousness: patient oriented x3 Limitations: no limitations HEENT: Head: Yes normal to inspection, Yes normocephalic and Yes atraumatic Ears: hearing grossly normal bilaterally General nose exam: Normal external nose present Face and sinus: Yes normal facial exam Mouth: Normal oral and palatal mucosa present, oropharynx normal and moist mucous membranes Throat: Yes posterior oropharynx normal Eyes: General: appearance normal, both eyes and all related structures E yelids: Yes eyelids normal Conjunctivae: conjunctivae normal Sclerae: s clerae normal Pupils: Equal, round and reactive pupils present EOM: EOMs intact bilaterally Neck: Neck: Yes normal visual inspection, Yes full ROM and Yes no lymphadenopathy Lymphatic: no lymphadenopathy noted Chest: Chest palpation & inspection: normal inspection of the chest Resp: Effort & Inspection: normal respiratory effort and able to speak in complete sentences Auscultation: clear to auscultation bilaterally, no crackles, no rales, no rhonchi and no wheezes Cardio: Rate: regular rate Rhythm: regular rhythm Heart sounds: S1 normal heart sound present and S2 normal heart sound present GI: Other: Abdomen is soft, with tenderness palpation in the left lower quadrant. No rebound or guarding. No CVA tenderness Inspection: Yes normal to inspection : General: Yes no CVA tenderness Back/Spine/Pelvis: Back: no CVA tenderness Skin: General skin exam: no rashes or lesions noted Trauma: no lacerations or abrasions Wounds: no wounds Neuro: General: patient oriented x3 and moves all extremities Cranial nerves: Yes Equal, round and reactive pupils present Extrem: General: Yes normal to inspection Right upper extremity: normal to inspection Left upper extremity: normal to inspection Right lower extremity: normal to inspection Left lower extremity: normal to inspection Course Reevaluation(s) Reevaluation #1: CT scan revealing diffuse mural thickening involving the sigmoid colon with enlargement. Question underlying mass versus stool. Recommending sigmoidoscopy. Patient reports that his colonoscopy was done several years ago and was unremarkable. I urged the importance of following up with his primary care physician for further management and diagnostics of this. Multiple low density liver lesions also stable. I reviewed the CT scan, does appear that he may have left-sided kidney stones, I reviewed this with my attending physician, Dr. Torres, who recommends reaching out to the radiologist for clarification. Time: 09:13 Reevaluation #2: Radiologist states that this is all calcifications, no kidney stone seen. Will treat as a urinary tract infection, previously on fluoroquinolones. He has a history of penicillin allergy, unsure of reaction and unknown if he has taken any fluorouqinolones. Will start on Bactrim DS. Advised to follow-up with his PCP. EKG revealing incomplete right bundle-branch block, no previous EKG for comparison. Will order repeat troponin. ACS unlikely however due to lightheadedness, will order as a precaution. Will start on Bactrim DS. Time: 09:24 Reevaluation #3: trop neg, d/c with strict return precautions. Stable for d/c. Medications Administered Discontinued Medications Generic Name Dose Route Start Last Admin Trade Name Freq PRN Reason Stop Dose Admin Trimethoprim/Sulfamethoxazole 1 tab 03/15/24 09:39 03/15/24 09:57 Sulfamethox/Trimeth 800/160 Tablet PO 03/15/24 09:40 1 tab ONCE ONE Administration Medical Decision Making Medical Decision Making MDM Narrative: This is a 69-year-old male who presents emergency department with complaints of hematuria. On arrival, blood pressure mildly elevated 152/59, all other vital signs within normal limits. He is speaking full sentences under no acute distress. Abdomen is soft and has mild tenderness palpation in the left lower quadrant. Patient has a history of urinary tract infections symptoms feel similar. He has been seen here multiple times for the same symptoms however CT scan was never obtained at that time. Will obtain CT scan to rule out any obstructive pathology given left lower quadrant discomfort and hematuria. Differential diagnoses include nephrolithiasis, obstructive uropathy, mass, UTI, acute cystitis. Differential Diagnosis Differential Diagnoses: The differential diagnosis associated with the presentation includes See above Admission/Observation Consideration of admission/observation: Escalation of care including admission/observation considered Lab Data MDM Lab Attestation statement: I reviewed the patient's lab results. No leukocytosis, stable H&H, chemistry with no evidence of JOHN. Troponin 4.2. Urine with large blood, large leuk esterase, rbc's, wbc's, 1+ bacteria. 03/15/24 07:57 03/15/24 07:57 Labs: Lab Results 03/15/24 03/15/24 Range/Units 07:57 11:01 WBC 15.4 H (4.8-10.8) X10*3/uL RBC 4.55 L (4.60-5.80) X10*6/uL Hgb 15.1 (14.0-18.0) g/dl Hct 43.0 (42.0-52.0) % MCV 94.5 (80.0-98.0) fL MCH 33.2 H (27.0-33.0) pg MCHC 35.1 (31.0-36.0) g/dl RDW 13.5 (11.0-16.0) % Plt Count 179 (160-400) X10*3/uL MPV 9.6 (9.4-12.4) fL Immature Gran % (Auto) 0.5 H (0.0-0.4) % Neut % (Auto) 80.6 H (45-73) % Lymph % (Auto) 10.7 L (20-40) % [place] % (Auto) 7.5 (2-11) % Eos % (Auto) 0.3 (0-4) % Baso % (Auto) 0.4 (0-2) % Lymph # (Auto) 1.7 (1.2-4.9) X10*3/uL [place] # (Auto) 1.2 (0.1-1.2) X10*3/uL Eos # (Auto) 0.0 (0.0-0.4) X10*3/uL Baso # (Auto) 0.1 (0.0-0.2) X10*3/uL Abs Immat Gran (auto) 0.07 H (0.00-0.03) X10*3/uL Absolute Neuts (auto) 12.4 H (2.0-8.3) x10*3/uL Absolute Nucleated RBC 0.000 (0.0-0.012) X10*3/uL Nucleated RBC % (auto) 0.0 (0.0-0.2) /100WBC Sodium 139 (135-145) mmol/L Potassium 4.0 (3.3-5.1) mmol/L Chloride 106 (96-108) mmol/L Carbon Dioxide 27 (22-29) mmol/L Anion Gap 10 L (12-20) BUN 22 H (9-16) mg/dL Creatinine 0.76 (0.5-1.4) mg/dL Estim Creat Clear Calc 82.0 Estimated GFR > 60 Random Glucose 103 (60-115) mg/dL Calcium 9.1 (8.4-10.2) mg/dL Magnesium 2.1 (1.6-2.6) mg/dL Total Bilirubin 1.0 (0.0-1.0) mg/dL AST 30 (5-37) U/L ALT 17 (0-40) U/L Alkaline Phosphatase 59 (39-117) U/L Troponin I High Sens 12.2 11.6 (<3.5-35.0) ng/L Total Protein 6.7 (6.5-8.0) g/dL Albumin 4.1 (3.5-5.0) g/dL Lipase 24 (8-78) U/L Urine Color Dark Yellow Urine Appearance Cloudy Urine pH 5.0 (5.0-9.0) Ur Specific [place] 1.025 (1.005-1.025) Urine Protein 30 (1+) H (Neg-Trace) mg/dL Urine Glucose (UA) Negative (Negative) mg/dL Urine Ketones Trace (Negative) mg/dL Urine Blood Large (3+) H (Negative) Urine Nitrite Negative (Negative) Ur Leukocyte Esterase Large (3+) H (Negative) Urine RBC >20 H (0-2) /HPF Urine WBC >50 H (0-5) /HPF Ur Squamous Epith Cells 0-2 (0-2) /HPF Other Crystals Present Urine Bacteria 1+ (None Seen) Hyaline Casts 0-2 (0-2) /LPF Independent Interpretation I performed an independent interpretation of an: EKG Interpretation: Sinus rhythm with a short NH with frequent premature ventricular complexes, ventricular rate of 83 beats per minute, no ST elevation or depression. Discussed EKG with my attending physician. No previous EKG for comparison. Radiology Impression Discussion of test interpretation with radiology: I have reviewed the radiologist's reading. Radiologist Impression: Report Number: [id number]: Total DLP = 454.00 mGy-cm EXAMINATION: CT ABDOMEN AND PELVIS WITHOUT CONTRAST CLINICAL INFORMATION: Left-sided flank pain COMPARISON: CT abdomen and pelvis 01/16/2023 TECHNIQUE: Multidetector volumetric imaging was performed from the superior aspect of the liver through the pubic symphysis. Sagittal and coronal reformatted images were obtained on the technologist's workstation. This CT examination was performed using dose optimization techniques as appropriate, variously including the following: *Automated exposure control *Adjustment of mA and/or kV according to patient size (this includes techniques or standardized protocols for targeted exams where dose is matched to indication/reason for exam; i.e. extremities or head) *Use of iterative reconstruction technique DLP: 454 mGy-cm FINDINGS: LUNG BASES: The visualized lung bases are unremarkable. LIVER, GALLBLADDER, AND BILIARY TREE: The liver is normal in size, shape, and attenuation. There are multiple low-density lesions in the liver which are stable. No intrahepatic ductal dilatation seen. The gallbladder is unremarkable. PANCREAS: Unremarkable. SPLEEN: Unremarkable. ADRENAL GLANDS: Unremarkable. KIDNEYS AND URETERS: The kidneys are normal in size, shape, and attenuation. No hydronephrosis, hydroureter, or calculi seen. No perinephric stranding. BLADDER: Unremarkable. GASTROINTESTINAL TRACT: There is scattered stool, diverticuli and gas throughout the colon without distention. There is mild mural thickening involving the sigmoid colon with adjacent diverticuli but no pericolic fat stranding seen. The small bowel loops are normal caliber. Appendix is normal caliber. No free air or free fluid seen. ABDOMINAL WALL: No significant hernia is appreciated. LYMPH NODES: Normal. VASCULAR: There is significant atherosclerotic calcification of abdominal aorta and common iliac arteries without aneurysmal dilatation PELVIC VISCERA: Unremarkable. 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 The vertebral heights, alignment and disc heights are normal. There is mild ventral spondylosis. No visible acute fracture or dislocation. CT/CT abdomen pelvis wo IV con IMPRESSION: Diffuse mural thickening involving the sigmoid colon with enlargement. Question underlying mass versus stool. The findings were visualized on previous exam and appear 01/17/2023. Recommend sigmoidoscopy. Scattered colonic diverticulosis without diverticulitis. Normal appendix. Mild constipation. Multiple low-density liver lesions are stable. Fleischner guidelines were followed. Electronically signed by: Chris Sorenson MD 03/15/2024 08:47 AM EST Dictated By: Chris Sorenson MD Discharge Plan Discharge Clinical Impression: Urinary tract infection, Abnormal EKG Patient Disposition: Still a Patient Instructions: Urinary Tract Infection in Men (ED) Additional Instructions: You were seen in the emergency department due to urinary symptoms. We started you on an antibiotic, Bactrim, please take this as prescribed. Finish the entire course even if your symptoms improve. CT scan shows some swelling amongst the sigmoid colon, it is very important your primary care physician as you may need a sigmoidoscopy for better examination of this. Call your primary care physician today. You also have low liver lesions, these are stable, please as burning a primary care physician. Drink plenty of fluids get plenty of rest. You may follow-up with the urologist due to frequent urinary tract infections. If any new or worsening symptoms occur including but not limited to chest pain, shortness for breath, please seek emergent care. Prescriptions: New sulfamethoxazole-trimethoprim [Bactrim DS] 800-160 mg tablet 1 tab PO BID 7 Days Qty: 14 0RF No Action levofloxacin 750 mg tablet 750 mg PO DAILY Qty: 7 0RF ciprofloxacin HCl [Cipro] 500 mg tablet 500 mg PO Q12H 5 Days Qty: 10 0RF atorvastatin 40 mg tablet 40 mg PO DAILY aspirin [Adult Aspirin Regimen] 81 mg tablet,delayed release (DR/EC) 81 mg PO DAILY Men's 50 Plus Multivitamin 400-20-370 mcg tablet 1 tab PO DAILY levofloxacin 500 mg tablet 500 mg PO DAILY 10 Days Qty: 10 0RF lidocaine [AsperFlex (lidocaine)] 4 % adhesive patch,medicated 1 patch topical DAILY PRN (Reason: pain) Qty: 15 0RF Stand Alone Forms: Work/School Release Interventions: ED Discharge Assessment Last Done: 03/15/24 11:53 Discharge Date/Time: 03/15/24 11:56 Print Language: [place]
--- NOTE | 2024-03-15 07:47 | ECG_ITS ---
Test Reason : DIZZINESS Blood Pressure : / mmHG Vent. Rate : 082 BPM Atrial Rate : 082 BPM P-R Int : 110 ms QRS Dur : 094 ms QT Int : 380 ms P-R-T Axes : 074 080 078 degrees QTc Int : 443 ms Sinus rhythm with short DC with frequent Premature ventricular complexes Incomplete right bundle branch block Borderline ECG No previous ECGs available Referred By: Elvia Sumner Electronically Signed By:KAMRAN TAVERAS MD
[2024-03-15 08:03] LABS: MANUAL DIFF FLAG NO
[2024-03-15 08:05] LABS: Basophils Absolute Auto 0.1 X10*3/uL (0.0-0.2); Basophils Percent Auto 0.4 % (0-2); Eosinophils Percent Auto 0.3 % (0-4); Hemoglobin 15.1 g/dl (14.0-18.0); Imm Gran Abs Auto 0.07 X10*3/uL (0.00-0.03); Imm Gran Pct Auto 0.5 % (0.0-0.4); Lymphocytes Absolute Auto 1.7 X10*3/uL (1.2-4.9); Lymphocytes Percent Auto 10.7 % (20-40); Mean Corpuscular HGB Conc 35.1 g/dl (31.0-36.0); Mean Corpuscular Hemoglobin 33.2 pg (27.0-33.0); Mean Corpuscular Volume 94.5 fL (80.0-98.0); Mean Platelet Volume 9.6 fL (9.4-12.4); Monocytes Absolute Auto 1.2 X10*3/uL (0.1-1.2); Monocytes Percent Auto 7.5 % (2-11); Neutrophils Absolute Auto 12.4 x10*3/uL (2.0-8.3); Neutrophils Percent Auto 80.6 % (45-73); Platelet Count 179 X10*3/uL (160-400); Red Blood Count 4.55 X10*6/uL (4.60-5.80); Red Cell Distribution Width 13.5 % (11.0-16.0); White Blood Count 15.4 X10*3/uL (4.8-10.8)
[2024-03-15 08:07] LABS: Appearance Urine Cloudy; Color Urine Dark Yellow; Glucose Urine UA Negative (Negative); Leukocyte Esterase Urine Large (3+) (Negative); Nitrite Urine Negative (Negative); Specific Gravity - Urine 1.025 (1.005-1.025); UMIC TRIGGER UACC YES; Urine Blood Large (3+) (Negative); Urine Ketones Trace mg/dL (Negative); Urine Protein 30 (1+) mg/dL (Neg-Trace)
--- NOTE | 2024-03-15 08:14 | PC.NURSE ---
Patient came from home via triage for hematuria since yesterday with retention and burning during urination. Patient denies fever/chills, c/o of lightheadedness. Patient rates pain 2/10 to LLQ, denies need for pain medication at this time. Labs obtained. 20g IV placed left hand.
[2024-03-15 08:22] LABS: Bacteria Urine 1+ (None Seen); Hyaline Casts Urine 0-2 /LPF (0-2); Lipase 24 U/L (8-78); Magnesium 2.1 mg/dL (1.6-2.6); Other Crystals Urine Present; RBC Urine >20 /HPF (0-2); Squamous Epithelial Cell Urine 0-2 /HPF (0-2); UACC Culture Trigger YES; WBC Urine >50 /HPF (0-5)
[2024-03-15 08:29] LABS: Troponin-I High Sensitivity 12.2 ng/L (<3.5-35.0)
[2024-03-15 08:34] LABS: Alanine Aminotransferase 17 U/L (0-40); Albumin Level 4.1 g/dL (3.5-5.0); Alkaline Phosphatase 59 U/L (39-117); Anion Gap 10 (12-20); Aspartate Amino Transferase 30 U/L (5-37); Blood Urea Nitrogen 22 mg/dL (9-16); Calcium 9.1 mg/dL (8.4-10.2); Carbon Dioxide 27 mmol/L (22-29); Chloride 106 mmol/L (96-108); Estimated Glomerular Filt Rate > 60; Glucose Random 103 mg/dL (60-115); Sodium 139 mmol/L (135-145); Total Protein 6.7 g/dL (6.5-8.0)
--- NOTE | 2024-03-15 08:57 | PC.NURSE ---
Orthostatic BPs completed, TRESSA Gan made aware.
[2024-03-15] MEDS: Sulfamethox/Trimeth 800/160 TABLET 1 TAB PO (09:57)
--- NOTE | 2024-03-15 10:24 | PC.NURSE ---
Patient gave phone number for sister, marc Lovelace to provide updates.
[2024-03-15 11:29] LABS: Troponin-I High Sensitivity 11.6 ng/L (<3.5-35.0)
== END 2024-03-15 11:56 | disposition still patient (30) ==
PROVIDERS: Physician Assistant Medical; Emergency Provider Emergency Medicine; PCP Internal Medicine
DX: N39.0 Urinary tract infection, site not specified (principal); R31.9 Hematuria, unspecified; R35.0 Frequency of micturition; R39.15 Urgency of urination; R94.31 Abnormal electrocardiogram [ECG] [EKG]; R10.2 Pelvic and perineal pain; Z79.899 Other long term (current) drug therapy
CPT/HCPCS: 36415; 74176; 80053; 81001; 83690; 83735; 84484; 85025; 87086; 87088; 87186; 93005; 99284; 99285

== ENCOUNTER → 2024-03-15 07:45 | Outpatient (BNV) | payer BC, SELFPAY | PROVIDERS: Emergency Provider Emergency Medicine; PCP Internal Medicine; Visit Provider Radiology Diagnostic Radiology | DX: R10.32 Left lower quadrant pain (principal) | CPT/HCPCS: 74176 ==

== ENCOUNTER → 2024-03-15 07:47 | Outpatient (BNV) | payer BC, SELFPAY | PROVIDERS: Emergency Provider Emergency Medicine; PCP Internal Medicine; Visit Provider Internal Medicine Cardiovascular Disease | DX: R42 Dizziness and giddiness (principal) | CPT/HCPCS: 93010 ==